=== PATIENT | female | born 1990 | race Caucasian/White ===

== ENCOUNTER → 2016-08-27 | Outpatient (CLI) | payer OTHER ==
[2016-08-27 19:02] VITALS: BP 121/76
== END ==
LOC: MHUC 17:22
PROVIDERS: ATTEND Physician Assistant
DX: J01.00 Acute maxillary sinusitis, unspecified (principal)
CPT/HCPCS: 99213

== ENCOUNTER → 2016-09-03 | Outpatient (CLI) | payer OTHER ==
[2016-09-03 16:26] VITALS: BP 112/75
== END ==
LOC: MHUC 15:51
PROVIDERS: ATTEND Physician Assistant
DX: H69.83 Other specified disorders of Eustachian tube, bilateral (principal)
CPT/HCPCS: 99213

== ENCOUNTER 2016-11-25 16:50 | Emergency (ER) | payer OTHER ==
[~2016-11-25] VITALS: Ht 175.3 cm; Wt 88.0 kg
[~2016-11-25 16:50] MED LIST: ACET325T38 PO; AMIT10TA6 PO; ASPI-158 PO; AZIT250T81 PO; GUAI100G2 PO; HYDR-2013 PO; HYDR-2651 PO; HYDR-3754 PO; IBUP-793 PO; NAPR500T PO; NF-MEDROXA IM; ONDA4TAB8 PO; OXYC1TAB87 PO; PRED20TA PO; TAMS-8 PO; [UNRECOGNIZED DRUG - CODE] PO; depoprovera
--- OUTSIDE RECORDS SUMMARY | 2016-11-25 16:53 | XMS REPORT | Continuity of Care Document ---
Author Author [facility] Address Unknown Phone Unavailable Care Team Providers Care Java Systems Analyst Name Role Phone Kyler Swanson MD PCP [phone] Insurance Providers Payer Name Policy Number Subscriber Name Relationship [facility] [id number] Christie Carranza 19 Self / Same As Patient [employer] [id number] Christie Carranza 19 Self / Same As Patient [facility] [id number] Juancarlos Hatch G8 Other Advance Directives Directive Response Recorded Date/Time Advanced Directives No 03/24/16 4:24pm Chief Complaint and Reason for Visit Chief Complaint Pain Reason for Visit Sinusitis, acute frontal Problems Active Problems Medical Problem Onset Date Status Dehydration, mild ~05/19/2014 Acute Kidney stone 08/12/2012 Acute Missed 02/10/2013 Acute Pruritic rash 08/08/2013 Acute Right otitis media Unknown Acute Second degree burn of hand 01/02/2013 Acute Sinusitis, acute frontal Unknown Acute Syncope, vasovagal Unknown Acute Medications Current Home Medications Medication Dose Units Route Directions Days/Qty Instructions Start Date Acetaminophen 325 Mg 1-2 Tab ORAL Qd-Bid for Toothache 05/19/14 Guaifenesin 100 Mg 100 Mg ORAL As Needed 03/24/16 Aspirin/Acetaminophen/Caffeine 1 Each 1 Each ORAL As Needed 03/24/16 Acetaminophen/Aspirin/Caffeine 1 Each 1 Each ORAL As Needed 03/24/16 Azithromycin 6 Tab/Pkt 250 Mg ORAL See Instructions for Infection 6 Day One: Take 2 tablets by mouth Days Two-Five: Take 1 tablet by mouth 03/24/16 Prednisone 20 Mg 20 Mg ORAL Twice A Day 10 03/24/16 Past Home Medications Medication Directions Ordered Status [Depoprovera] , 08/12/12 Discontinued Amitriptyline Hcl 10 Mg Tablet, 20 Mg Oral Bedtime 08/12/12 Discontinued Ibuprofen 600 Mg Tablet, 1 Tab Oral Every 6 Hours as needed 08/12/12 Discontinued Ondansetron 4 Mg Tab.rapdis, 1 Tab Oral Every 6 Hours as needed 08/12/12 Discontinued Hydrocodone Bit/Acetaminophen 1 Each Tablet, 1 - 2 Each Oral Every 4HRS as needed 08/12/12 Discontinued Hydrocodone Bit/Acetaminophen 1 Tab Tab, 1 - 2 Tab Oral Q 4H Prn 01/02/13 Discontinued Hydrocodone Bit/Acetaminophen 1 Each Tablet, 1 - 2 Each Oral Every 6 Hours Discontinued Naproxen 500 Mg Tablet, 500 Mg Oral Prn 08/08/13 Discontinued Hydroxyzine Hcl 25 Mg Tablet, 25 Mg Oral Q6 Hrs as needed 08/08/13 Discontinued Ondansetron 4 Mg Tab.rapdis, 4 Mg Oral As Needed 05/19/14 Discontinued Azithromycin 6 Tab/Pkt Tablet, 250 Mg Oral See Instructions 11/14/15 Discontinued Social History Query Response Start Date Stop Date Smoking Status Never smoker Hospital Discharge Instructions No hospital discharge instructions. Plan of Care Discharge Date 03/24/16 4:50pm Disposition 01 HOME OR SELF-CARE Condition at Discharge Stable Instructions/Education Provided Sinusitis (ED) Prescriptions See Medication Section Referrals Klyer Swanson MD - Additional Instructions/Education Z-pack, prednisone as directed. ED MARIA FERNANDA if any worse. See your doctor in 2-3 days if not greatly improved. Some of your test results may not be complete prior to your leaving the Emergency Department. The Emergency Department is not authorized to give test results over the phone. Please contact the doctor's office listed in this packet of information for your final results. Follow up with your primary care physician or return to the Emergency Department for worsening or worrisome symptoms. * Emergency Department phone number: [phone], x [phone] MEDICAL RECORD If you need copies of your X-rays, call [phone]. If you need copies of your medical record, including lab results, a signed authorization for release of records will be required. A telephone call for release of Health Information is not allowed. BILLING Billing can sometimes be confusing and frustrating. To help avoid confusion in the future, please take a moment to acquaint yourself with the billing parties for services. SERVICE BILLING [employer]STITUTION [employer] Emergency Room Services [facility] Physician Services [facility] X[facility] Patients will receive bills for services from the appropriate provider. If you have any questions about your [facility] bill, our staff will be happy to assist you. Please call [phone], and ask for the billing department. THANK YOU for choosing [facility] as your emergency care provider! Care Plan and Goals ~~Discharge Care Plan~~ Problem: Sinusitis Goal: Decreased congestion Instructions: Take medication(s) as directed. Follow physician discharge instructions. Follow up with primary care physician as directed. Functional Status No functional status results. Allergies, Adverse Reactions, Alerts Allergen Type Severity Reaction Status Last Updated hydromorphone HCl Allergy Active 08/12/12 Penicillin Allergy Unknown HIVES, SWELLING Active 05/19/14 Hydromorphone Allergy Unknown HIVES, SWELLING Active 05/19/14 Immunizations Name Given Type Status Date Influenza Vaccine Received if Current 04/20/14 Historical Historical Vital Signs Acute Vital Signs Vital Response Date/Time Temperature (Fahrenheit) 97.6 03/24/2016 4:47pm Pulse 84 bpm 03/24/2016 4:47pm Respirations 16 03/24/2016 4:47pm Height 5 ft 10 in Weight 220 lb Body Mass Index 31.0 kg/m^2 Results No known relevant diagnostic tests, laboratory data and/or discharge summary. Procedures No known history of procedures. Encounters Encounter Location Arrival/Admit Date Discharge/Depart Date Attending Provider Departed Emergency Room [facility] 03/24/16 4:15pm 03/24/16 4:50pm RUSSEL FENTON MD Recent Diagnosis
--- NOTE | 2016-11-25 17:30 | NUR ---
orthostatic blood pressures performed lying = 116/64 - 82 sitting = 114/78 - 99 standing = 108/82 - 115 Provider notified
[2016-11-25] MEDS: SODIUM CHLORIDE FLUSH 10 ML SYR IV PRN (17:39)
[2016-11-25] MEDS: SODIUM CHLORIDE FLUSH 3 ML SYR IV PRN (17:42)
[2016-11-25] MEDS: ONDANSETRON 4 MG (ZOFRAN) ORAL DISSOLVE TAB PO ONE (17:42)
[2016-11-25 17:47] LABS: BASOPHILS % (AUTO) 0 % (0-2); EOSINOPHILS % (AUTO) 0 % (0-4); LYMPHOCYTES # (AUTO) 1.1 X10^3; MEAN CORPUSCULAR HEMOGLOBIN 28.8 PG (26.0-34.0); MEAN CORPUSCULAR HGB CONC 33.8 g/dL (31.0-37.0); MEAN CORPUSCULAR VOLUME 85 FL (80-100); MEAN PLATELET VOLUME 10.6 FL (6.0-9.5); MONOCYTES # (AUTO) 0.5 X10^3; MONOCYTES % (AUTO) 11 % (3-11); NEUTROPHILS # (AUTO) 2.9 X10^3; NEUTROPHILS % (AUTO) 65 % (51-67); PLATELET COUNT 191 10^3uL (150-450); WHITE BLOOD COUNT 4.55 10^3uL (4.0-11.0)
[2016-11-25 18:01] LABS: ALBUMIN 4.6 g/dL (3.4-5.0); CALCULATED IONIZED CALCIUM 3.7 mg/dL (3.8-4.6)
--- NOTE | 2016-11-25 18:09 | NUR ---
patient resting quietly on cart with eyes open. states nausea "its a little better" denies dizziness or lightheadedness at this time. denies need to urinate at this time. instructed to call when/if she is able to catch urine sample
--- NOTE | 2016-11-25 18:50 | NUR ---
patient currently denies any nausea
--- NOTE | 2016-11-25 18:51 | NUR ---
ua taken to lab
[2016-11-25 18:52] LABS: BILIRUBIN,URINE Negative (Negative); GLUCOSE, URINE (UA) Negative (Negative); LEUKOCYTE ESTERASE ,URINE Negative (Negative); PH,URINE 5.5 (5.0 - 8.0); UROBILINOGEN,URINE 0.2 mg/dL (0.2-1.0)
[2016-11-25 18:53] LABS: CLARITY,URINE Slightly Cloudy; COLOR,URINE Dark Yellow
[2016-11-25 19:11] LABS: URINE CENTRIFUGED VOLUME 12 mL
[2016-11-25 19:12] LABS: AMORPHOUS SEDIMENT,UR Rare /HPF
[2016-11-25] MEDS: ONDANSETRON 2 MG/ML (Z0FRAN) 2 ML VIAL IV ONE (19:29)
[2016-11-25 20:42] VITALS: BP 109/61
== END 2016-11-25 20:35 | disposition home or self-care (01) ==
LOC: ED 16:51
DX: E86.0 Dehydration (principal); R55 Syncope and collapse
CPT/HCPCS: 36415; 80053; 81003; 81015; 85025; 93005; 96361; 96374; 99283; J2405; J7030; 93010; 99284